=== PATIENT | male | born 1960 | race Caucasian/White ===

== ENCOUNTER 2021-05-28 08:00 | Outpatient (CLI) | payer OTHER | END 2021-05-28 08:30 | disposition home or self-care (01) | LOC: PPH VACUNA 08:00 | DX: Z23 Encounter for immunization (principal) ==

== ENCOUNTER 2021-09-26 13:42 | Inpatient (IN) | payer OTHER ==
[~2021-09-26] VITALS: Ht 190.5 cm; Wt 188.2 kg
== END 2021-10-02 09:41 | disposition home or self-care (01) | DRG 446 ==
LOC: ER 13:42 → SURG 19:29
PROVIDERS: ADMIT Specialist; ATTEND Specialist
PROC: BW21ZZZ Computerized Tomography (CT Scan) of Abdomen and Pelvis (ICD-10-PCS; principal; 2021-09-26)
PROC: 02HV33Z Insertion of Infusion Device into Superior Vena Cava, Percutaneous Approach (ICD-10-PCS; 2021-09-29)
DX: K80.00 Calculus of gallbladder with acute cholecystitis without obstruction (principal); R10.11 Right upper quadrant pain; E66.01 Morbid (severe) obesity due to excess calories; I10 Essential (primary) hypertension; G47.33 Obstructive sleep apnea (adult) (pediatric); E11.9 Type 2 diabetes mellitus without complications; Z79.4 Long term (current) use of insulin; Z20.822 Contact with and (suspected) exposure to COVID-19

== ENCOUNTER 2021-11-27 07:37 | Outpatient (CLI) | payer OTHER | END 2021-11-27 08:20 | disposition home or self-care (01) | LOC: SONOGRAMA 07:37 | PROVIDERS: ATTEND Internal Medicine Gastroenterology | DX: R10.13 Epigastric pain (principal) ==

== ENCOUNTER 2022-01-07 08:00 | Outpatient (CLI) | payer OTHER | END 2022-01-07 08:30 | disposition home or self-care (01) | LOC: PPH VACUNA 08:00 | PROVIDERS: ATTEND Emergency Medicine Pediatric Emergency Medicine | DX: Z23 Encounter for immunization (principal) ==

== ENCOUNTER 2023-09-06 08:50 | Outpatient (CLI) | payer OTHER | END 2023-09-06 09:10 | disposition home or self-care (01) | LOC: TOM 08:50 | PROVIDERS: ATTEND Radiology Diagnostic Radiology | DX: G44.89 Other headache syndrome (principal); R42 Dizziness and giddiness; Z88.0 Allergy status to penicillin; Z88.1 Allergy status to other antibiotic agents ==

== ENCOUNTER 2023-09-07 07:18 | Outpatient (CLI) | payer OTHER | END 2023-09-07 07:19 | disposition home or self-care (01) | LOC: NUCLEAR 07:18 | PROVIDERS: ATTEND Internal Medicine Cardiovascular Disease | DX: G45.9 Transient cerebral ischemic attack, unspecified (principal) ==

== ENCOUNTER 2023-09-07 13:05 | Outpatient (CLI) | payer OTHER | END 2023-09-07 15:58 | disposition home or self-care (01) | LOC: MRI 13:05 | PROVIDERS: ATTEND Specialist | DX: I63.9 Cerebral infarction, unspecified (principal); H47.49 Disorders of optic chiasm in (due to) other disorders | CPT/HCPCS: 70553 ==

== ENCOUNTER 2024-07-06 07:16 | Outpatient (CLI) | payer OTHER | END 2024-07-06 07:45 | disposition home or self-care (01) | LOC: SONOGRAMA 07:16 | PROVIDERS: ATTEND Internal Medicine Gastroenterology | DX: R10.84 Generalized abdominal pain (principal) ==